=== PATIENT | female | born 1945 | race Caucasian/White ===

== ENCOUNTER 2018-11-14 09:00 | Outpatient (AMBR) | payer MEDICARE, SELFPAY ==
--- NOTE | 2018-10-27 12:10 | PTNOTE_ITS ---
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 Pt stated that her arm is still swollen, numb, and tingling. Pt has 3/10 pain when she tries to move her arm. Pt still has difficulty with ironing, overhead motions, lifting, chores, self care, work duties, and performing ADLs. Pt mention that she does live alone and will like to gain as much indep as possible. Objective Right Shoulder AROM: no active movement in all plane Right Shoulder PROM Flexion: 90 deg Abduction: 70 deg ER and IR: NT due to pain Right Shoulder MMTs: grossly trace Palpation: TTP right scalenes, upper trape, and levator scapulae musculatures DASH score: 45% Assessment Pt demonstrate right shoulder mobility and strength deficits s/p reverse shoulder replacement leading to decline function. Pt will benefit from physical therapy to increase strength, mobility, and work on functional tasks. Short Term and General Manager In Training Goals 1) Increase shoulder flexion AROM and DASH score to 70% in 12 wks to be able to perform shoulder height activities 2) Increase shoulder MMTs to 3+/5 in 12 wks to be able to perform chores 3) Decrease shoulder pain to 2/10 in 12 wks to be able to perform self care activities 4) Increase right c/s musculature flexibility WFL in 12 wks to be able to drive with minimal limitation 5) Indep with HEP Treatment Plan 1) Manual Therapy 2) Therapeutic Activities 3) Therapeutic Exercises 4) Modalities (ice, heat) Frequency and Duration 2 x wk for 12 wks Certification Dates: 10/27/18 to 01/25/19 Office Procedures PT Outpatient G-Codes Date of Service PT Date of Service: 10/27/18 G-Codes Carry/Moving/Handling Objects Carry Current Status G-Code: G8984: CM 80-100% Carry Goal Status G-Code:G8985: CJ 20-40% PT Procedures PT Date of Service: 10/27/18 OP PT Eval Mod Complex 30 minutes: Yes
--- NOTE | 2018-11-01 11:51 | PT.ODAYNRPT ---
PT Outpatient Daily Note Date of Service: November 01, 2018 OP Daily Note Visit Reasons: right shouder pain Outpatient Physical Therapy Treatment Date: 11/01/18 Subjective: Pt stated that her shoulder still feels numb. Pt has difficulty putting on her jacket. Pt feels okay today. Objective: Please see flow chart for list of ther ex performed Assessment: minimal guarding with PROM and tolerate isometric exercises. Pt was slightly dizziness after being in supine position for most of PT treatment. Pt require a few mins of sitting at the EOB to get herself together. Plan: Continue with PT Length of Time (minutes) of Treatment: 45 Minutes Office Procedures PT Outpatient G-Codes Date of Service PT Date of Service: 10/27/18 G-Codes Carry/Moving/Handling Objects Carry Current Status G-Code: G8984: CM 80-100% Carry Goal Status G-Code:G8985: CJ 20-40% PT Procedures PT Date of Service: 10/27/18 OP PT Eval Mod Complex 30 minutes: Yes PT Procedures PT Date of Service: 11/01/18 Therapeutic Exercise 30 minutes: Yes Manual Structural Drafter 15 minutes: Yes
--- NOTE | 2018-11-04 13:42 | PTNOTE_ITS ---
PT Outpatient Daily Note Date of Service: November 04, 2018 OP Daily Note Visit Reasons: right shouder pain Outpatient Physical Therapy Treatment Date: 11/04/18 Subjective: pt reported feeling lightheaded and not sure from what. pt states it could be the weather. pt refused to lay supine due to possible of vomiting. Objective: see flow sheet. Assessment: elevated the HOB to 50 degrees and used 3 pillows to support her neck. pillow under shoulder. during PROM pt needs cuing to relax for all planes. pt is more limited in mobility for ER/IR due to tightness. pt was having pain but tolerated PROM. pt was able to stay in place during PROM but squinting a little. pt understands the importance of PROM. added pulleys in which she completed the time but very slow motion at her own pace to be able to keep the discomfort tolerable. Plan: continue POC per PT. Length of Time (minutes) of Treatment: 45 Minutes Office Procedures PT Outpatient G-Codes Date of Service PT Date of Service: 10/27/18 G-Codes Carry/Moving/Handling Objects Carry Current Status G-Code: G8984: CM 80-100% Carry Goal Status G-Code:G8985: CJ 20-40% PT Procedures PT Date of Service: 11/04/18 Therapeutic Exercise 15 minutes: Yes Manual Investor Relations Coordinator 30 minutes: Yes PT Procedures PT Date of Service: 10/27/18 OP PT Eval Mod Complex 30 minutes: Yes PT Procedures PT Date of Service: 11/01/18 Therapeutic Exercise 30 minutes: Yes Manual Investor Relations Coordinator 15 minutes: Yes
--- NOTE | 2018-11-14 10:40 | PT.ODAYNRPT ---
PT Outpatient Daily Note Date of Service: November 14, 2018 OP Daily Note Visit Reasons: right shouder pain Outpatient Physical Therapy Treatment Date: 11/14/18 Subjective: Pt still notice tingling near the incision site. Pt's pain is bearable but still has difficulty moving her arm Objective: Please see flow chart for list of ther ex performed Assessment: improve PROM with less pain; still trace with rotaor cuff musculatures Plan: Continue with PT Length of Time (minutes) of Treatment: 45 Minutes Office Procedures PT Outpatient G-Codes Date of Service PT Date of Service: 10/27/18 G-Codes Carry/Moving/Handling Objects Carry Current Status G-Code: G8984: CM 80-100% Carry Goal Status G-Code:G8985: CJ 20-40% PT Procedures PT Date of Service: 11/04/18 Therapeutic Exercise 15 minutes: Yes Manual Strategic Consultant 30 minutes: Yes PT Procedures PT Date of Service: 11/14/18 Therapeutic Exercise 30 minutes: Yes Manual Strategic Consultant 15 minutes: Yes PT Procedures PT Date of Service: 10/27/18 OP PT Eval Mod Complex 30 minutes: Yes PT Procedures PT Date of Service: 11/01/18 Therapeutic Exercise 30 minutes: Yes Manual Strategic Consultant 15 minutes: Yes
== END 2018-11-14 23:59 | disposition home or self-care (01) ==
PROVIDERS: PCP Registered Nurse Community Health; Referring Provider Registered Nurse Community Health; Visit Provider Orthopaedic Surgery
DX: M25.511 Pain in right shoulder (principal); R53.1 Weakness; M79.89 Other specified soft tissue disorders; R20.0 Anesthesia of skin; R20.2 Paresthesia of skin; I10 Essential (primary) hypertension
CPT/HCPCS: 97110; 97140; 97162; G8984; G8985

== ENCOUNTER 2018-12-26 11:00 | Outpatient (AMBR) | payer MEDICARE, SELFPAY ==
--- NOTE | 2018-12-21 15:43 | PT.ODAYNRPT ---
PT Outpatient Daily Note Date of Service: December 21, 2018 OP Daily Note Visit Reasons: right shoulder pain Outpatient Physical Therapy Treatment Date: 12/21/18 Subjective: Pt's shoulder feels much better. Pt is now able to dress self with less restriction. Pt still has difficulty putting on her L ear ring. Objective: Please see flow chart for list of ther ex performed Assessment: continue to improve with sohulder AROM flexion, abduction, scaption. Pt has weakness in serratus and scapular musculature leading to difficulty with reaching exercise Plan: Continue with PT Length of Time (minutes) of Treatment: 60 Minutes Office Procedures PT Procedures PT Date of Service: 12/21/18 Therapeutic Exercise 60 minutes: Yes
--- NOTE | 2018-12-26 12:06 | PT.ODAYNRPT ---
PT Outpatient Daily Note Date of Service: December 26, 2018 OP Daily Note Visit Reasons: right shoulder pain Outpatient Physical Therapy Treatment Date: 12/26/18 Subjective: Pt has minimal shoulder pain. Pt stated that her arm and shoulder is still numb. Pt can now reach further into the desk and perform tasks. Objective: Please see flow chart for list of ther ex performed Assessment: tolerate exercises performed, continue to improve with shoulder AAROM in flexion and abduction. Plan: Conitnue with PT Length of Time (minutes) of Treatment: 30 Minutes Office Procedures PT Procedures PT Date of Service: 12/21/18 Therapeutic Exercise 60 minutes: Yes PT Procedures PT Date of Service: 12/26/18 Therapeutic Exercise 45 minutes: Yes
== END 2019-01-12 23:59 | disposition home or self-care (01) ==
PROVIDERS: Visit Provider Orthopaedic Surgery
DX: M25.511 Pain in right shoulder (principal); S43.431D Superior glenoid labrum lesion of right shoulder, subsequent encounter; S46.011D Strain of muscle(s) and tendon(s) of the rotator cuff of right shoulder, subsequent encounter; W17.89XD Other fall from one level to another, subsequent encounter
CPT/HCPCS: 97110

== ENCOUNTER → 2024-10-11 | Outpatient (CLI) | payer OTHER, SELFPAY ==
--- NOTE | 2024-10-11 10:37 | XR_ITS ---
Examination: Bilateral hips, AP pelvis, 5 views Technique: AP, lateral views both hips, AP pelvis, 5 views Exam date and time: October 11, 2024 1131 hours Comparison January 30, 2022 INDICATIONS: Bilateral hip pain one year worse on the right side FINDINGS: Dystrophic ossification lateral and above the right hip Prominent osteopenia Moderate bilateral hip osteoarthritis Bones of the pelvis intact Healed fracture right femoral shaft No acute fracture or hip dislocation IMPRESSION: Moderate bilateral hip osteoarthritis
== END | disposition home or self-care (01) ==
PROVIDERS: PCP Nurse Practitioner Family; Referring Provider Internal Medicine Rheumatology; Visit Provider Internal Medicine Rheumatology
DX: M16.0 Bilateral primary osteoarthritis of hip (principal)
CPT/HCPCS: 73522

== ENCOUNTER 2024-11-21 09:19 | Outpatient (AMB) | payer OTHER, SELFPAY ==
[2024-11-21 09:44] VITALS: BP 141/66; PULSE 85; RESP 18; TEMP 36.2; O2SAT 97; BMI 32.1
--- NOTE | 2024-11-21 09:44 | PD.ORTHCLVIS ---
Vital signs 11/21/24 09:44 Height 1.52 m Height Method Stated Weight 74.559 kg Weight Measurement Method Standing Scale BMI 32.1 BP 141/66 H Blood Pressure Source Automatic Cuff Blood Pressure Location Right Upper Arm Position Sitting Respiration 18 Pulse 85 Pulse Source Monitor Temp 97.2 F Temp Source Temporal Artery Scan Pulse Oximetry (%) 97 Oxygen Delivery Method Room Air Med/Allergies Allergies & Medications Allergies promethazine [From Phenergan] Allergy (Severe, Verified 02/28/24 10:30) Gastrointestinal Upset Sulfa (Sulfonamide Antibiotics) Allergy (Severe, Verified 11/21/24 09:45) Swelling of Lip/Tongue/Throat Medication Reconciliation ascorbic acid (vitamin C) 500 mg tablet (Vitamin C) 500 mg PO QDAY 05/14/20 [History Confirmed 11/21/24] calcium 315 mg (as citrate)-vitamin D3 6.25 mcg (250 unit) tablet (Citracal + Vitamin D Maximum) 1 tab PO QDAY 05/14/20 [History Confirmed 11/21/24] cholecalciferol (vitamin D3) 50 mcg (2,000 unit) capsule (Vitamin D3) 50 mcg PO QDAY 05/14/20 [History Confirmed 11/21/24] cyanocobalamin (B12)-cobamamide 5,000 mcg-100 mcg sublingual tablet (B-12 Plus) 1 tab QDAY 05/14/20 [History Confirmed 11/21/24] glucosamine sulf dipot chlr,msm,chond 550 mg-C 30 mg-maik 1 mg capsule (Glucosamine Chondroitin) 1 cap PO QDAY 05/14/20 [History Confirmed 11/21/24] lactobacillus combination no.4 3 billion cell capsule (Probiotic) 3,000 mmu cells PO QDAY 05/14/20 [History Confirmed 11/21/24] levothyroxine 88 mcg tablet 88 mcg PO QDAY 05/14/20 [History Confirmed 11/21/24] multivitamin 1 tab PO QDAY 05/14/20 [History Confirmed 11/21/24] omega 8-hdr-igb-fish oil 1,200 mg (144 mg-216 mg) capsule (Fish Oil) 1 cap PO QDAY 05/14/20 [History Confirmed 11/21/24] prasterone (dhea) 25 mg capsule (DHEA) 25 mg PO QDAY 05/14/20 [History Confirmed 11/21/24] prednisone 1 mg tablet 3 mg PO QDAY 05/14/20 [History Confirmed 11/21/24] turmeric 400 mg capsule 400 mg PO QDAY 05/14/20 [History Confirmed 11/21/24] vitamin B complex-folic acid 0.4 mg tablet (B Complex 1 (with folic acid)) 1 tab PO QDAY 05/14/20 [History Confirmed 11/21/24] cyclobenzaprine 10 mg tablet 10 mg PO TID PRN muscle spasm #30 tabs 02/21/21 [Rx Confirmed 11/21/24] meclizine 50 mg tablet 50 mg PO QDAY #14 tabs 02/22/24 [Rx Confirmed 11/21/24] metoclopramide HCl 5 mg tablet (Reglan) 5 mg PO QDAY #90 tabs 02/28/24 [Rx Confirmed 11/21/24] pantoprazole 40 mg tablet,delayed release (Protonix) 40 mg PO QDAY #90 tabs 02/28/24 [Rx Confirmed 11/21/24] Exam Exam Patient is in no acute distress and is cooperative with the examination today. Breathing is nonlabored. In no respiratory distress. Patient has no paraspinal tenderness. Spinal deformity cannot be appreciated. The gait of the patient is nonantalgic Bilateral extremities were evaluated and demonstrates sensation intact to light touch. Palpable pedal pulses are present. No significant edema is present. Bilateral knees were examined and the patient has full strength and range of motion.. The left hip was examined. Patient was able to flex to 90 degrees, adduct to 30 degrees, abduct to 40 degrees, internally rotate to 20 degrees, and externally rotate to 20 degrees. Patient has a negative logroll. Stinchfield is negative. The patient is nontender diffusely to touch. The right hip was examined. Patient was able to flex to 90 degrees, adduct to 30 degrees, abduct to 40 degrees, internally rotate to 20 degrees, and externally rotate to 20 degrees. Patient has a negative logroll. The stinchfield is negative. Assessment and Plan Problem List (1) Myositis ossificans: Status: Acute Plan: Patient is a pleasant 79-year-old female who presents today for evaluation of her Right hip. She had a childhood trauma when she was young. I will get serial x-rays and there is some Ossification and gluteus medius. I discussed with her that there are 2 options and it usually is self-limiting or something we would watch. I would not recommend Removal of the ossification at this time. Plan We will see the patient back On an as-needed basis Advanced Care Planning Discussion Advance care planning discussed with:: patient Office Procedures GNS Level of Care Nursing/Assessment Patient Status: Established Patient Nursing Assessment/Reassesment: Medication Reconciliation, Update PMH in EMR and Vital Signs Coordination of Care: Complex Care and Chronic Disease 1-5, Education Complex Pt/Fam, Consent,records obtained, informed consent, Results/Orders obtained and Staff clarify orders Established Patient Charge Established Patient Point Assignment: 95 Established Patient Point Charge: EP Level 3 (80-115) MA Intake Visit Data Collection New Patient or Established: Established Patient (seen at [facility] within 3 years) Reason for Visit:: RIGHT HIP PAIN Seen by Clinical Staff ONLY (RN/MA): No Verbal consent obtained for Telemed visit?: No Publicity Director Required: No PCP or OBGYN visit in last 3 months: Yes Hx Now: No Do You Feel Safe at Home: Yes Authorities Contacted: N/A Questionairres Past Medical History Past Medical History Have you ever been diagnosed with any of the following: Neurological Problems Seizures: No Cardiology Problems Congestive Heart Failure: No Pericarditis: Yes (1967) Hypotension: Yes Respiratory Problems Chronic Obstructive Pulmonary Disease (COPD): No Stomache/Intestinal Problems Hiatal Hernia: Yes Gastroesophageal Reflux Disease: Yes Genital/Urinary Problems Renal Disease: No Kidney Stones: Yes Musculoskeletal Problems Arthritis: Yes Rheumatoid Arthritis: Yes Endocrine Problems Diabetes Mellitus Type 1: No Diabetes Mellitus Type 2: No Hypothyroidism: Yes Systemic Lupus Erythematosus: Yes Other Problems Blood Transfusions: Yes Blood Transfusion Reaction: No Anesthesia Reactions: No Chicken Pox: Yes Measles: Yes Mumps: Yes Cancer: No Subjective Visit Visit for: new patient and hip Immunization / Flu Flu Vaccine in the Last 12 Months: No Flu Vaccine Exclusion Criteria: No Exclusion Criteria History of Present Illness Chief complaint: RIGHT HIP PAIN Lynn is a pleasant 79-year-old female who is 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 She had a prior childhood trauma over 50 years ago. She does not report any significant increase in pain recently. She saw a prior orthopedic surgeon who referred her here Personal History Occupation: RETIRED Red flag PMH: none BMI Counceling provided: Yes Pain Pain level (0-10): 8 Pain duration: COMES AND GOES Pain location: groin Pain quality: sharp Pain timing: increases with activity Associated signs & symptoms: stiffness Ambulatory data Ambulatory device: none Treatments Improvement with previous injections: No Improvement with PT: No Improvement with NSAIDS: n/a Review of Systems Review of Systems: All systems negative unless otherwise noted in HPI.
== END 2024-11-21 10:22 | disposition home or self-care (01) ==
PROVIDERS: Supervising Provider Orthopaedic Surgery Adult Reconstructive Orthopaedic Surgery; Visit Provider Orthopaedic Surgery Adult Reconstructive Orthopaedic Surgery
DX: M61.9 Calcification and ossification of muscle, unspecified (principal); E03.9 Hypothyroidism, unspecified; K21.9 Gastro-esophageal reflux disease without esophagitis
CPT/HCPCS: 99213; G0463

== ENCOUNTER → 2024-12-01 | Outpatient (CLI) | payer OTHER, SELFPAY ==
--- NOTE | 2024-12-01 15:20 | XR_ITS ---
Examination: Abdomen sonogram, Limited Date and time of exam: December 01, 2024 1608 hrs. Indications: Mid abdominal pain beginning one month ago Technique: Real-time guillory scale transabdominal sonographic images of the upper abdomen obtained. Findings: 5 mm gallstone Gallbladder wall is thickened 0.8 cm and suspicious for edema Common bile duct 0.3 cm Pancreas obscured by bowel gas Liver 14.8 cm fatty infiltration smooth contour no focal liver lesions Normal hepatopedal portal venous flow Patent IVC Impression: Cholelithiasis Suspicious for cholecystitis, consider HIDA scan or MRCP follow-up
--- NOTE | 2024-12-01 15:26 | XR_ITS ---
Examination: Abdomen AP single view Technique: AP portable supine abdomen, single view Exam date and time: December 01, 2024 at 1534 hrs. Indications: Abdominal pain in the left mid quadrant beginning one month ago Findings: Large amounts of stool throughout the colon No obstruction No free air Significant osteopenia Lumbar levoscoliosis 10 degrees Impression: Large amounts of stool throughout the colon
== END | disposition home or self-care (01) ==
LOC: CDIM 15:08
PROVIDERS: PCP Nurse Practitioner Family; Referring Provider Specialist; Visit Provider Specialist
DX: K80.20 Calculus of gallbladder without cholecystitis without obstruction (principal); K59.00 Constipation, unspecified
CPT/HCPCS: 74018; 76705

== ENCOUNTER → 2024-12-06 | Outpatient (CLI) | payer OTHER, SELFPAY ==
[2024-12-06 12:11] LABS: Basophils % (Auto) 0 % (0-2.5); Eosinophils % (Auto) 1 % (0-10); Hematocrit 44.3 % (36.0-46.0); Hemoglobin 14.8 g/dL (12.0-16.0); Immature Granulocytes % (Auto) 0 % (0-0); Immature Granulocytes Auto 0.03 Thou/mm3 (0.00-0.00); Lymphocytes # (Auto) 0.6 Thou/mm3 (1.0-4.8); Lymphocytes % (Auto) 7 % (10-50); Mean Corpuscular HGB Conc 33.4 g/dl (31.0-37.0); Mean Corpuscular Hemoglobin 30.1 pg (25.0-35.0); Mean Corpuscular Volume 90 fL (80-100); Monocytes # (Auto) 0.4 Thou/mm3 (0.0-0.8); Monocytes % (Auto) 5 % (0-12); Neutrophils # (Auto) 6.4 Thou/mm3 (1.8-7.7); Neutrophils % (Auto) 86 % (37-80); Nucleated Red Blood Cell % 0 /100 WBC (0); Platelet Count 234 Thou/mm3 (140-440); RDW Standard Deviation 46.2 fL (36.4-46.3); Red Blood Count 4.92 Miln/mm3 (4.00-5.20); White Blood Count 7.5 Thou/mm3 (3.6-11.0)
[2024-12-06 12:25] LABS: Urea Breath Test Negative (Negative)
[2024-12-06 12:34] LABS: Bacteria,Urine Rare; Bilirubin,Urine Negative (Negative); Blood,Urine Negative (Negative); Clarity,Urine Clear (Clear/Hazy); Collection Type, Urine Clean Catch; Color,Urine Yellow (Lt Yel-Yel); Glucose, Urine Negative (Negative); Ketones,Urine Negative (Negative); Leukocyte Esterase,Urine Negative (Negative); Nitrite,Urine Negative (Negative); Protein,Urine Negative (Neg - Trace); RBC,Urine 2 /hpf (0-3); Specific Gravity,Urine 1.019 (1.001-1.035); Squamous Epithelial Cell,Urine 4 /hpf (0-5); Urobilinogen,Urine Negative mg/dL (0.0-1.0); WBC,Urine 1 /hpf (0-5)
[2024-12-06 12:38] LABS: Alanine Aminotransferase 8 U/L (10-49); Albumin, Serum 4.9 gm/dL (3.4-4.8); Albumin/Globulin Ratio 2.1 (1.2-2.2); Alkaline Phosphatase 84 U/L (46-116); Amylase 45 U/L (30-118); Anion Gap 8 (7-16); Aspartate Amino Transferase 25 U/L (0-34); BUN/Creatinine Ratio 29 Ratio (12-20); Bilirubin,Total 0.4 mg/dL (0.3-1.2); Blood Urea Nitrogen 23 mg/dL (9-23); Carbon Dioxide 28.8 mMol/L (20.0-31.0); Chloride 105 mMol/L (98-107); Creatinine (Component) 0.8 mg/dL (0.6-1.3); Globulin 2.3 gm/dL (2.3-3.5); Glucose 101 mg/dL (74-106); Lipase 38 U/L (12-53); Osmolality,Calculated 286 (275-295); Potassium 4.1 mMol/L (3.4-5.1); Sodium 142 mMol/L (136-145); Total Protein 7.2 gm/dL (5.7-8.2); eGFR > 60 See Note
== END | disposition home or self-care (01) ==
LOC: COPL 11:11
PROVIDERS: PCP Nurse Practitioner Family; Referring Provider Specialist; Visit Provider Specialist
DX: R10.9 Unspecified abdominal pain (principal)
CPT/HCPCS: 36415; 80053; 81001; 82150; 83013; 83014; 83690; 85025

== ENCOUNTER → 2025-01-25 | Outpatient (CLI) | payer OTHER, SELFPAY ==
--- NOTE | 2025-01-25 09:45 | XR_ITS ---
Examination: Screening digital mammography, bilateral Computer aided detection 3-D breast Tomosynthesis, bilateral Date and time of exam: 01/25/2025, 9:39 AM Comparisons: 12/14/2023 Indications: Screening Technique: Nonmagnified MLO, CC views of the breasts to been obtained, reconstructed from 3-D Tomosynthesis images. R2 computer aided detection program utilized for evaluation of suspicious masses and/or abnormal calcifications. 3-D Tomosynthesis images obtained. Technologist: Findings: There are scattered areas of fibroglandular density. No evidence of abnormal masses or suspicious calcifications. Impression: BI-RADS category 1: Negative findings (within normal) Recommend 1 year follow-up mammogram
== END | disposition home or self-care (01) ==
LOC: CDIM 09:22
PROVIDERS: Referring Provider Physician Assistant; Visit Provider Physician Assistant
DX: Z12.31 Encounter for screening mammogram for malignant neoplasm of breast (principal); R92.313 Mammographic fatty tissue density, bilateral breasts
CPT/HCPCS: 77063; 77067

== ENCOUNTER 2025-02-17 17:16 | Emergency (ER) | payer OTHER, SELFPAY ==
[2025-02-17 17:17] VITALS: BMI 31.2
[2025-02-17 18:41] VITALS: BP 131/63; PULSE 76; RESP 18; TEMP 37; O2SAT 98
--- NOTE | 2025-02-17 18:41 | XR_ITS ---
Examination: Knee, left , 3 views Technique: Knee AP, lateral, oblique 3 views Date and time of exam: February 17, 2025 1947 hours INDICATIONS: Left knee pain beginning 4 days ago. FINDINGS: Moderate to advanced tricompartment osteoarthritis No fracture Moderate knee effusion IMPRESSION: Moderate to advanced tricompartment osteoarthritis
[2025-02-17] MEDS: NAPROXEN 250 MG TABLET 500 MG PO (18:57)
--- NOTE | 2025-02-18 02:33 | PD.EDLOWEX ---
Lower Extremity Injury RME/HPI General Chief Complaint: Extremity Injury, Lower Stated Complaint: Left ankle pain after she stepped wrong Time Seen by Provider: 02/17/25 18:41 Arrival date/time: 02/17/25 17:16 79F with history of RA presents to ED with L knee pain and swelling after it gave out on her. Patient just wants XR to make sure it's not broken. Limitations: no limitations Related Data Home Medications ?Medication ?Instructions ?Recorded ?Confirmed ascorbic acid (vitamin C) 500 mg 500 mg PO QDAY 05/14/20 11/21/24 tablet (Vitamin C) calcium 315 mg (as 1 tab PO QDAY 05/14/20 11/21/24 citrate)-vitamin D3 6.25 mcg (250 unit) tablet (Citracal + Vitamin D Maximum) cholecalciferol (vitamin D3) 50 50 mcg PO QDAY 05/14/20 11/21/24 mcg (2,000 unit) capsule (Vitamin D3) cyanocobalamin (B12)-cobamamide 1 tab QDAY 05/14/20 11/21/24 5,000 mcg-100 mcg sublingual tablet (B-12 Plus) glucosamine sulf dipot 1 cap PO QDAY 05/14/20 11/21/24 chlr,msm,chond 550 mg-C 30 mg-maik 1 mg capsule (Glucosamine Chondroitin) lactobacillus combination no.4 3 3,000 mmu cells PO QDAY 05/14/20 11/21/24 billion cell capsule (Probiotic) levothyroxine 88 mcg tablet 88 mcg PO QDAY 05/14/20 11/21/24 multivitamin 1 tab PO QDAY 05/14/20 11/21/24 omega 0-vfo-afj-fish oil 1,200 mg 1 cap PO QDAY 05/14/20 11/21/24 (144 mg-216 mg) capsule (Fish Oil) prasterone (dhea) 25 mg capsule 25 mg PO QDAY 05/14/20 11/21/24 (DHEA) prednisone 1 mg tablet 3 mg PO QDAY 05/14/20 11/21/24 turmeric 400 mg capsule 400 mg PO QDAY 05/14/20 11/21/24 vitamin B complex-folic acid 0.4 1 tab PO QDAY 05/14/20 11/21/24 mg tablet (B Complex 1 (with folic acid)) Previous Rx's ?Medication ?Instructions ?Recorded cyclobenzaprine 10 mg tablet 10 mg PO TID PRN muscle spasm #30 02/21/21 Held on 02/28/24. tabs Instructions: Resume on 02/29/24. meclizine 50 mg tablet 50 mg PO QDAY #14 tabs 02/22/24 metoclopramide HCl 5 mg tablet 5 mg PO QDAY #90 tabs 02/28/24 (Reglan) pantoprazole 40 mg tablet,delayed 40 mg PO QDAY #90 tabs 02/28/24 release (Protonix) Allergies Allergy/AdvReac Type Severity Reaction Status Date / Time promethazine (From Phenergan) Allergy Severe Gastrointestinal Verified 02/28/24 10:30 Upset Sulfa (Sulfonamide Allergy Severe Swelling Verified 11/21/24 09:45 Antibiotics) of Lip/Tongue/Throat Review of Systems Review of Systems Systems Reviewed: All systems reviewed, normal except as documented Constitutional Constitutional: Reports system reviewed and no additional complaints, except as documented, Denies fever(s) and Denies headache(s) ENT Ears, Nose, Mouth, and Throat: Denies disequilibrium and Denies headache(s) Cardiovascular Cardiovascular: Reports system reviewed and no additional complaints, except as documented, Denies chest pain and Denies dyspnea Respiratory Respiratory: Reports system reviewed and no additional complaints, except as documented, Denies cough and Denies dyspnea Gastrointestinal Gastrointestinal: Reports system reviewed and no additional complaints, except as documented, Denies abdominal pain, Denies nausea and Denies vomiting Musculoskeletal Musculoskeletal: Reports as per HPI, Reports arthralgias and Reports joint swelling Neurologic Neurologic: Reports system reviewed and no additional complaints, except as documented, Denies confusion, Denies disequilibrium and Denies headache(s) Psychiatric Psychiatric: Denies confusion Past Medical History Past Medical History NEUROLOGIC: Positive Neurological Disorders (VERTIGO); Negative Seizures CARDIAC: Positive Cardiac Disorders, Pericarditis (1970) and Hypotension; Negative Congestive Heart Failure RESPIRATORY: Negative Chronic Obstructive Pulmonary Disease (COPD) GASTROINTESTINAL: Positive Gastrointestinal Disorders, Hiatal Hernia and Gastroesophageal Reflux Disease GENITOURINARY: Positive Genitourinary Disorders and Kidney Stones; Negative Renal Disease MUSCULOSKELETAL: Positive Musculoskeletal Disorders, Arthritis and Rheumatoid Arthritis ENDOCRINE: Positive Endocrine Disorders, Hypothyroidism and Systemic Lupus Erythematosus; Negative Diabetes Mellitus Type 1 or Diabetes Mellitus Type 2 HEMATOLOGIC: Negative Blood Disorders OTHER HISTORY: Positive Autoimmune Disease (LUPUS), Blood Transfusions, Chicken Pox, Measles and Mumps; Negative Blood Transfusion Reaction, Anesthesia Reactions or Cancer Family History FAMILY HISTORY: Positive Family Cardiac Disorders and Family Cancer Surgical History SURGICAL: Positive Open Reduction Internal Fixation Social History SMOKING STATUS: Never smoker ED Exam General Limitations: Present no limitations General appearance: Present alert and in no apparent distress Head Head exam: Present atraumatic Eye Eye exam: Present normal appearance, PERRL and EOMI ENT ENT exam: Present normal exam, normal oropharynx and mucous membranes moist Neck Neck exam: Present normal inspection, full ROM and trachea midline Chest Chest inspection: Present normal inspection and symmetric chest wall rise Respiratory Respiratory exam: Present normal lung sounds bilaterally Cardiovascular Cardiovascular exam: Present regular rate, normal rhythm and normal heart sounds Abdominal Exam Abdominal exam: Present soft and normal bowel sounds Extremities Exam Extremities exam: Present full ROM Expanded Lower Extremity Exam Knee exam: Present full ROM (L) and swelling Back Exam Back exam: Present normal inspection and full ROM Neurological Exam Neurological exam: Present alert, oriented X3 and CN II-XII intact Psychiatric Psychiatric exam: Present normal affect and normal mood Skin Skin exam: Present warm, dry, intact and normal color Course Quality Measures none Orders Category Date Time Status XR knee LT 3V Stat Exams 02/17/25 18:41 Completed Naproxen [Naprosyn] Med 02/17/25 18:41 Discontinued 500 mg PO X1 ONE Vital Signs Vital signs: Vital Signs Temperature 98.6 F 02/17/25 18:41 Pulse Rate 76 02/17/25 18:41 Respiratory Rate 18 02/17/25 18:41 Blood Pressure 131/63 H 02/17/25 18:41 Pulse Oximetry (%) 98 02/17/25 18:41 Oxygen Delivery Method Room Air 02/17/25 18:41 O2 at 98% on RA and WNLs Extremity Injury, Lower MDM Narrative MDM Narrative:: 79F with history of RA presents to ED with L knee pain and swelling after it gave out on her. Patient just wants XR to make sure it's not broken. Physical exam reveals L knee swelling, but nor tenderness. ROM intact. Patient already has an KAYCE wrap. Patient is afebrile, calm, and alert. XR no fx. Patient data External records reviewed:: [facility] previous records Clinical information provided by:: patient Social determinants that could affect healthcare access:: none Patient has the following chronic illnesses:: RA How is presenting disease/condition affected by chronic disease/condition?: exacerbated by Evaluation data The following diagnostics were reviewed and interpreted by me:: radiology exam(s) Lab and/or radiology exams considered but not ordered:: ordered Interpretation Summary: above Medications / Prescriptions Medications or Prescriptions considered but not ordered:: ordered Medication administrations:: Medication Administration History Discontinued Medications Naproxen (Naproxen 250 Mg Tablet) 500 mg PO X1 ONE Stop: 02/17/25 18:42 Last Admin: 02/17/25 18:57 Dose: 500 mg Documented By: RD above Consultations Consultation(s) initiated? (list below): No Diagnosis Extremity Injury, Lower Differential Diagnosis: ankle sprain and strain, acute internal derangement of knee, fracture of femur, fracture of hip, puncture wound of foot, fracture of toe and ankle fracture Most likely diagnosis given after review of the tests above:: acute internal derangement of knee Admission Indicated Admission indicated?: not indicated Admission Request Was there a request for admission?: No Disposition Plan Disposition Plan: Discharge Discharge Attestation Discharge Attestation: The patient and all family members were given an opportunity to ask questions and understood the discharge instructions. Discharge instructions specifically effects, indications for sooner follow up or return to the emergency department, and the expected course of current diagnosis. Patient condition: Stable Discharge Plan Plan Patient Disposition: HOME (Self Care) Disposition Comment: Stable Prescriptions/Referrals Prescriptions/Med Rec: No Action multivitamin Tablet 1 tab PO QDAY prasterone (dhea) [DHEA] 25 mg Capsule 25 mg PO QDAY ascorbic acid (vitamin C) [Vitamin C] 500 mg Tablet 500 mg PO QDAY prednisone 1 mg Tablet 3 mg PO QDAY vitamin B complex-folic acid [B Complex 1 (with folic acid)] 0.4 mg Tablet 1 tab PO QDAY cyanocobalamin-cobamamide [B-12 Plus] 5,000-100 mcg Tablet, Sublingual 1 tab QDAY cholecalciferol (vitamin D3) [Vitamin D3] 50 mcg (2,000 unit) Capsule 50 mcg PO QDAY calcium citrate-vitamin D3 [Citracal + D Maximum] 315 mg- 250 unit Tablet 1 tab PO QDAY omega 0-rdd-htm-fish oil [Fish Oil] 1,200 (144-216) mg Capsule 1 cap PO QDAY Probiotic 3 billion cell Capsule 3,000 mmu cells PO QDAY turmeric 400 mg Capsule 400 mg PO QDAY Glucosamine Chondroitin 550-30-1 mg Capsule 1 cap PO QDAY levothyroxine 88 mcg Tablet 88 mcg PO QDAY cyclobenzaprine 10 mg tablet 10 mg PO TID PRN (Reason: muscle spasm) Qty: 30 0RF meclizine 50 mg tablet 50 mg PO QDAY Qty: 14 0RF pantoprazole [Protonix] 40 mg Tablet,Delayed Release (Dr/Ec) 40 mg PO QDAY Qty: 90 0RF metoclopramide HCl [Reglan] 5 mg Tablet 5 mg PO QDAY Qty: 90 0RF Referrals: Dta Villalobos PA-C [Primary Care Provider] - In 1 week Problem List Clinical Impression: Acute internal derangement of knee Patient/Caregiver Discharge Instructions Education Materials: How Your Knee Works Additional Instructions: Please follow-up with PCP within 24-48 hours and return immediately if symptoms worsen. If problem persists, recommend outpatient PT and/or MRI follow-up. In the meantime, rest, use ice/heat, and/or compression. Print Language: Syrian Stand Alone Forms: Patient Portal Info Letter PA/TRIAGE NURSE Supervising Physician PA/TRIAGE NURSE Supervising Physician: Dr. Higgins
== END 2025-02-17 21:06 | disposition home or self-care (01) ==
PROVIDERS: Emergency Provider Emergency Medicine; PCP Physician Assistant
DX: S83.105A Unspecified dislocation of left knee, initial encounter (principal); X50.9XXA Other and unspecified overexertion or strenuous movements or postures, initial encounter
CPT/HCPCS: 73562; 99283; A9270

== ENCOUNTER 2025-02-27 13:18 | Outpatient (AMB) | payer OTHER, SELFPAY ==
--- NOTE | 2025-02-27 13:52 | PD.ORTHCLVIS ---
Vital signs 02/27/25 13:53 Height 1.52 m Height Method Stated Weight 73.624 kg Weight Measurement Method Standing Scale BMI 31.8 BP 149/87 H Blood Pressure Source Automatic Cuff Blood Pressure Location Right Upper Arm Position Sitting Respiration 18 Pulse 86 Pulse Source Monitor Temp 97.7 F Temp Source Temporal Artery Scan Pulse Oximetry (%) 96 Oxygen Delivery Method Room Air Med/Allergies Allergies & Medications Allergies promethazine (From Phenergan) Allergy (Severe, Verified 02/27/25 13:55) Gastrointestinal Upset Sulfa (Sulfonamide Antibiotics) Allergy (Severe, Verified 02/27/25 13:55) Swelling of Lip/Tongue/Throat Medication Reconciliation ascorbic acid (vitamin C) 500 mg tablet (Vitamin C) 500 mg PO QDAY 05/14/20 [History Confirmed 02/27/25] calcium 315 mg (as citrate)-vitamin D3 6.25 mcg (250 unit) tablet (Citracal + Vitamin D Maximum) 1 tab PO QDAY 05/14/20 [History Confirmed 02/27/25] cholecalciferol (vitamin D3) 50 mcg (2,000 unit) capsule (Vitamin D3) 50 mcg PO QDAY 05/14/20 [History Confirmed 02/27/25] cyanocobalamin (B12)-cobamamide 5,000 mcg-100 mcg sublingual tablet (B-12 Plus) 1 tab QDAY 05/14/20 [History Confirmed 02/27/25] glucosamine sulf dipot chlr,msm,chond 550 mg-C 30 mg-maik 1 mg capsule (Glucosamine Chondroitin) 1 cap PO QDAY 05/14/20 [History Confirmed 02/27/25] lactobacillus combination no.4 3 billion cell capsule (Probiotic) 3,000 mmu cells PO QDAY 05/14/20 [History Confirmed 02/27/25] levothyroxine 88 mcg tablet 88 mcg PO QDAY 05/14/20 [History Confirmed 02/27/25] multivitamin 1 tab PO QDAY 05/14/20 [History Confirmed 02/27/25] omega 2-gyu-rrr-fish oil 1,200 mg (144 mg-216 mg) capsule (Fish Oil) 1 cap PO QDAY 05/14/20 [History Confirmed 02/27/25] prasterone (dhea) 25 mg capsule (DHEA) 25 mg PO QDAY 05/14/20 [History Confirmed 02/27/25] prednisone 1 mg tablet 3 mg PO QDAY 05/14/20 [History Confirmed 02/27/25] turmeric 400 mg capsule 400 mg PO QDAY 05/14/20 [History Confirmed 02/27/25] vitamin B complex-folic acid 0.4 mg tablet (B Complex 1 (with folic acid)) 1 tab PO QDAY 05/14/20 [History Confirmed 02/27/25] cyclobenzaprine 10 mg tablet 10 mg PO TID PRN muscle spasm #30 tabs 02/21/21 [Rx Confirmed 02/27/25] Held on 02/28/24. Instructions: Resume on 02/29/24. meclizine 50 mg tablet 50 mg PO QDAY #14 tabs 02/22/24 [Rx Confirmed 02/27/25] metoclopramide HCl 5 mg tablet (Reglan) 5 mg PO QDAY #90 tabs 02/28/24 [Rx Confirmed 02/27/25] pantoprazole 40 mg tablet,delayed release (Protonix) 40 mg PO QDAY #90 tabs 02/28/24 [Rx Confirmed 02/27/25] Exam Exam Patient is in no acute distress and is cooperative with the examination today. Breathing is nonlabored. In no respiratory distress. Patient has no paraspinal tenderness. Spinal deformity cannot be appreciated. The gait of the patient is nonantalgic Bilateral extremities were evaluated and demonstrates sensation intact to light touch. Palpable pedal pulses are present. No significant edema is present. Bilateral knees were examined and the patient has full strength and range of motion.. The left hip was examined. Patient was able to flex to 90 degrees, adduct to 30 degrees, abduct to 40 degrees, internally rotate to 20 degrees, and externally rotate to 20 degrees. Patient has a negative logroll. Stinchfield is negative. The patient is nontender diffusely to touch. The right hip was examined. Patient was able to flex to 90 degrees, adduct to 30 degrees, abduct to 40 degrees, internally rotate to 20 degrees, and externally rotate to 20 degrees. Patient has a negative logroll. The stinchfield is negative. left knee xrays demosntrate arthritis Assessment and Plan Problem List (1) Myositis ossificans: Status: Acute Plan: Patient is a pleasant 79-year-old female who presents today for evaluation of her Right hip. She also reports that she recently had a fall and increasing left knee pain since then. She went to the ER and there was no fracture. She does have a history of rheumatoid arthritis and she does have severe arthritis on x-ray. We discussed anti-inflammatories versus injections. She wants to hold off on any of it right now. We discussed that she should make an appointment with us should it worsen. I would also get weightbearing x-rays Plan We will see the patient back On an as-needed basis Advanced Care Planning Discussion Advance care planning discussed with:: patient Office Procedures GNS Level of Care Nursing/Assessment Patient Status: Established Patient Nursing Assessment/Reassesment: Medication Reconciliation, Update PMH in EMR and Vital Signs Coordination of Care: Complex Care and Chronic Disease 1-5, Education Complex Pt/Fam, Consent,records obtained, informed consent, Lab and Imaging orders, Results/Orders obtained and Staff clarify orders Established Patient Charge Established Patient Point Assignment: 110 Established Patient Point Charge: EP Level 3 (80-115) MA Intake Visit Data Collection New Patient or Established: Established Patient (seen at [facility] within 3 years) Reason for Visit:: KNEE PAIN Seen by Clinical Staff ONLY (RN/MA): No Verbal consent obtained for Telemed visit?: No PCP or OBGYN visit in last 3 months: Yes Hx Now: No Do You Feel Safe at Home: Yes Authorities Contacted: N/A Questionairres Past Medical History Past Medical History Have you ever been diagnosed with any of the following: Neurological Problems Seizures: No Cardiology Problems Congestive Heart Failure: No Pericarditis: Yes (1969) Hypotension: Yes Respiratory Problems Chronic Obstructive Pulmonary Disease (COPD): No Stomache/Intestinal Problems Hiatal Hernia: Yes Gastroesophageal Reflux Disease: Yes Genital/Urinary Problems Renal Disease: No Kidney Stones: Yes Musculoskeletal Problems Arthritis: Yes Rheumatoid Arthritis: Yes Endocrine Problems Diabetes Mellitus Type 1: No Diabetes Mellitus Type 2: No Hypothyroidism: Yes Systemic Lupus Erythematosus: Yes Other Problems Blood Transfusions: Yes Blood Transfusion Reaction: No Anesthesia Reactions: No Chicken Pox: Yes Measles: Yes Mumps: Yes Cancer: No Subjective Visit Visit for: follow up visit and knee Immunization / Flu Flu Vaccine in the Last 12 Months: No Flu Vaccine Exclusion Criteria: No Exclusion Criteria History of Present Illness Chief complaint: KNEE PAIN PAtient had a fall and went to the ER one month ago. The pain continues to improve. She has not had any injections. Personal History Occupation: retired Pain Pain level (0-10): 10 Pain duration: all day Pain location: inside (medial), outside (lateral), anterior and posterior Pain quality: sharp, dull and aching Pain timing: increases with activity Associated signs & symptoms: weakness Ambulatory data Ambulatory device: cane Treatments Improvement with previous injections: No Improvement with PT: No Review of Systems Review of Systems: All systems negative unless otherwise noted in HPI.
[2025-02-27 13:53] VITALS: BP 149/87; PULSE 86; RESP 18; TEMP 36.5; O2SAT 96; BMI 31.8
== END 2025-02-27 14:12 | disposition home or self-care (01) ==
PROVIDERS: PCP Physician Assistant; Referring Provider Physician Assistant; Supervising Provider Orthopaedic Surgery Adult Reconstructive Orthopaedic Surgery; Visit Provider Orthopaedic Surgery Adult Reconstructive Orthopaedic Surgery
DX: M61.9 Calcification and ossification of muscle, unspecified (principal); M25.562 Pain in left knee; M17.12 Unilateral primary osteoarthritis, left knee; K21.9 Gastro-esophageal reflux disease without esophagitis; E03.9 Hypothyroidism, unspecified
CPT/HCPCS: 99213; G0463

== ENCOUNTER 2025-08-26 09:08 | Emergency (ER) | payer OTHER, SELFPAY ==
[2025-08-26 09:11] VITALS: PULSE 72; RESP 16; O2SAT 98; BMI 31.2
[2025-08-26 09:17] VITALS: BP 165/55; PULSE 87; RESP 15; TEMP 36.8; O2SAT 98
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
--- NOTE | 2025-08-26 09:44 | XR_ITS ---
Examination: Left hip AP, lateral, AP pelvis 3 views Technique: Hip AP lateral, AP pelvis, 3 views Exam date and time: August 26, 2025, 0959 hours INDICATIONS: Injury to the left hip today, left hip pain FINDINGS: No left hip fracture or dislocation Right hip bones of the pelvis intact IMPRESSION: No acute hip or pelvic fracture.
--- NOTE | 2025-08-26 09:44 | XR_ITS ---
EXAMINATION: Left femur 2 views TECHNIQUE: AP lateral left femur 2 views Date and time: August 26, 2025, 1001 hours INDICATIONS: Injury to the leg today femur pain FINDINGS: No hip fracture or hip dislocation Shaft of the femur are intact Moderate left hip osteoarthritis Moderate tricompartment osteoarthritis left knee IMPRESSION: No acute fracture
[2025-08-26] MEDS: ACETAMINOPHEN 325 MG TABLET 650 MG PO (09:59)
[2025-08-26] MEDS: LIDOCAINE 5% 1 PATCH TOP (10:02)
[2025-08-26 10:13] LABS: Basophils # (Auto) 0.0 Thou/mm3 (0.0-0.2); Basophils % (Auto) 0 % (0-2.5); Eosinophils # (Auto) 0.0 Thou/mm3 (0.0-0.5); Eosinophils % (Auto) 0 % (0-10); Hematocrit 45.5 % (36.0-46.0); Hemoglobin 15.1 g/dL (12.0-16.0); Immature Granulocytes Auto 0.06 Thou/mm3 (0.00-0.00); Lymphocytes # (Auto) 0.6 Thou/mm3 (1.0-4.8); Lymphocytes % (Auto) 4 % (10-50); Mean Corpuscular HGB Conc 33.2 g/dl (31.0-37.0); Mean Corpuscular Hemoglobin 30.2 pg (25.0-35.0); Mean Corpuscular Volume 91 fL (80-100); Monocytes # (Auto) 1.1 Thou/mm3 (0.0-0.8); Monocytes % (Auto) 8 % (0-12); Neutrophils # (Auto) 11.7 Thou/mm3 (1.8-7.7); Neutrophils % (Auto) 87 % (37-80); Nucleated Red Blood Cell # 0.00 Thou/mm3 (0.00-0.00); Nucleated Red Blood Cell % 0 /100 WBC (0); Platelet Count 222 Thou/mm3 (140-440); RDW Standard Deviation 46.8 fL (36.4-46.3); Red Blood Count 5.00 Miln/mm3 (4.00-5.20); White Blood Count 13.5 Thou/mm3 (3.6-11.0)
[2025-08-26 10:23] VITALS: BP 160/81; PULSE 68; RESP 16; TEMP 36.8; O2SAT 96
[2025-08-26 10:25] LABS: Alanine Aminotransferase 11 U/L (10-49); Albumin, Serum 4.6 gm/dL (3.4-4.8); Albumin/Globulin Ratio 1.8 (1.2-2.2); Alkaline Phosphatase 80 U/L (46-116); Anion Gap 13 (7-16); Aspartate Amino Transferase 28 U/L (0-34); BUN/Creatinine Ratio 16 Ratio (12-20); Bilirubin,Total 0.7 mg/dL (0.3-1.2); Blood Urea Nitrogen 13 mg/dL (9-23); Calcium 9.4 mg/dL (8.3-10.6); Calcium (Corrected) 9.4 mg/dL (8.5-10.1); Carbon Dioxide 24.3 mMol/L (20.0-31.0); Chloride 108 mMol/L (98-107); Creatinine (Component) 0.8 mg/dL (0.6-1.3); Estimated Creatinine Clearance 52.4 mL/min (>60); Globulin 2.5 gm/dL (2.3-3.5); Glucose 108 mg/dL (74-106); Magnesium 2.2 mg/dL (1.6-2.6); Osmolality,Calculated 289 (275-295); Phosphorous 2.3 mg/dL (2.4-5.1); Potassium 3.6 mMol/L (3.4-5.1); Sodium 145 mMol/L (136-145); Total Protein 7.1 gm/dL (5.7-8.2); eGFR > 60 See Note
[2025-08-26 11:12] VITALS: BP 136/56; PULSE 72; RESP 20; TEMP 36.7; O2SAT 97
[2025-08-26] MEDS: NAPH,KPH MBDB 1 PACKET (1.5 GM) 2 PACKET PO (11:33)
--- NOTE | 2025-08-26 11:42 | PC.CC ---
Sandy LOFTON was consulted by HITESH Rowell regarding transportation for patient back home. [employer] arranged transportation for patient back home via [employer].
== END 2025-08-26 11:44 | disposition home or self-care (01) ==
PROVIDERS: PCP Student in an Organized Health Care Education/Training Program
DX: M16.12 Unilateral primary osteoarthritis, left hip (principal); M06.9 Rheumatoid arthritis, unspecified; M32.9 Systemic lupus erythematosus, unspecified
CPT/HCPCS: 36415; 73502; 73552; 80053; 83735; 84100; 85025; 99283; J3490; A9270

== ENCOUNTER → 2025-09-14 | Outpatient (CLI) | payer OTHER, SELFPAY ==
--- NOTE | 2025-09-14 14:35 | XR_ITS ---
Examination: Lumbar spine, 5 views Technique: Lumbar spine AP, lateral, coned lateral lower lumbar spine, bilateral obliques 5 views Exam date and time: September 14, 2025, 1438 hours, comparison February 09, 2024 INDICATIONS: Low back pain months. FINDINGS: Lumbar levoscoliosis 17 degrees Prominent osteopenia Diffuse advanced facet arthropathy No lumbar fracture Moderate to advanced diffuse lumbar degenerative disc disease IMPRESSION: Moderate to advanced lumbar degenerative disc disease
--- NOTE | 2025-09-14 14:35 | XR_ITS ---
Examination: Right hip AP, lateral, AP pelvis 3 views Technique: Hip AP lateral, AP pelvis, 3 views Exam date and time: September 14, 2025, 1438 hours INDICATIONS: Right hip pain this week FINDINGS: No right hip fracture or hip dislocation Dystrophic ossification above and lateral to the right hip Old fracture deformity proximal femoral shaft on the right No acute hip fracture Left hip bones of the pelvis intact Moderate narrowing bilateral hip joints IMPRESSION: No acute hip or pelvic fracture Moderate narrowing hip joints.
[2025-09-14 16:22] LABS: Basophils # (Auto) 0.0 Thou/mm3 (0.0-0.2); Basophils % (Auto) 0 % (0-2.5); Eosinophils # (Auto) 0.0 Thou/mm3 (0.0-0.5); Eosinophils % (Auto) 0 % (0-10); Hematocrit 44.3 % (36.0-46.0); Hemoglobin 14.6 g/dL (12.0-16.0); Immature Granulocytes Auto 0.02 Thou/mm3 (0.00-0.00); Lymphocytes # (Auto) 0.9 Thou/mm3 (1.0-4.8); Lymphocytes % (Auto) 12 % (10-50); Mean Corpuscular HGB Conc 33.0 g/dl (31.0-37.0); Mean Corpuscular Hemoglobin 30.2 pg (25.0-35.0); Mean Corpuscular Volume 92 fL (80-100); Monocytes # (Auto) 0.5 Thou/mm3 (0.0-0.8); Monocytes % (Auto) 7 % (0-12); Neutrophils # (Auto) 6.1 Thou/mm3 (1.8-7.7); Neutrophils % (Auto) 80 % (37-80); Nucleated Red Blood Cell # 0.00 Thou/mm3 (0.00-0.00); Nucleated Red Blood Cell % 0 /100 WBC (0); Platelet Count 209 Thou/mm3 (140-440); RDW Standard Deviation 47.0 fL (36.4-46.3); Red Blood Count 4.83 Miln/mm3 (4.00-5.20); White Blood Count 7.6 Thou/mm3 (3.6-11.0)
[2025-09-14 16:43] LABS: Alanine Aminotransferase 9 U/L (10-49); Albumin, Serum 4.8 gm/dL (3.4-4.8); Albumin/Globulin Ratio 2.3 (1.2-2.2); Alkaline Phosphatase 75 U/L (46-116); Anion Gap 10 (7-16); Aspartate Amino Transferase 21 U/L (0-34); BUN/Creatinine Ratio 16 Ratio (12-20); Bilirubin,Total 0.3 mg/dL (0.3-1.2); Blood Urea Nitrogen 14 mg/dL (9-23); Calcium 9.6 mg/dL (8.3-10.6); Calcium (Corrected) 9.6 mg/dL (8.5-10.1); Carbon Dioxide 25.3 mMol/L (20.0-31.0); Chloride 110 mMol/L (98-107); Creatinine (Component) 0.9 mg/dL (0.6-1.3); Globulin 2.1 gm/dL (2.3-3.5); Glucose 103 mg/dL (74-106); Osmolality,Calculated 289 (275-295); Potassium 4.0 mMol/L (3.4-5.1); Sodium 145 mMol/L (136-145); Total Protein 6.9 gm/dL (5.7-8.2); eGFR > 60 See Note
== END | disposition home or self-care (01) ==
LOC: CDIM 14:28 → COPL 14:57
PROVIDERS: PCP Student in an Organized Health Care Education/Training Program; Referring Provider Student in an Organized Health Care Education/Training Program; Visit Provider Radiology Diagnostic Radiology
DX: M25.851 Other specified joint disorders, right hip (principal); M51.369 Other intervertebral disc degeneration, lumbar region without mention of lumbar back pain or lower extremity pain; E87.8 Other disorders of electrolyte and fluid balance, not elsewhere classified
CPT/HCPCS: 36415; 72110; 73502; 80053; 85025

== ENCOUNTER → 2025-10-09 | Outpatient (CLI) | payer OTHER, SELFPAY ==
--- NOTE | 2025-10-09 14:00 | XR_ITS ---
Examination: Abdomen sonogram, complete Date and time of exam: October 09, 2025, 1407 hours INDICATIONS: Left lower abdominal pain beginning 1 month ago. Technique: Multiple real-time grayscale transabdominal sonographic images of the abdomen have been obtained. Findings: 5 mm gallstone Abnormal thickening of the gallbladder wall 0.6 cm Common bile duct 0.2 cm Pancreatic head 2.6 cm Aorta not enlarged Liver 14.8 cm fatty infiltration smooth contour Normal hepatopetal portal venous flow Patent IVC Right kidney 10.4 cm renal cortex 1.5 cm Left kidney 9.8 cm renal cortex 1.4 cm Spleen 8.0 cm IMPRESSION: Cholelithiasis Recommend HIDA scan or MRCP follow-up to exclude cholecystitis
--- NOTE | 2025-10-09 14:30 | XR_ITS ---
EXAMINATION: Ultrasound soft tissue left hip TECHNIQUE: Grayscale sonographic images soft tissue left hip Date and time: October 09, 2025, 1420 hours INDICATIONS: Left hip pain beginning 6 months ago. FINDINGS: No cystic or solid mass noted, no fluid in the left hip joint depicted IMPRESSION: Negative examination
== END | disposition home or self-care (01) ==
LOC: CDIM 13:37
PROVIDERS: PCP Student in an Organized Health Care Education/Training Program; Referring Provider Student in an Organized Health Care Education/Training Program; Visit Provider Student in an Organized Health Care Education/Training Program
DX: K80.20 Calculus of gallbladder without cholecystitis without obstruction (principal); M25.552 Pain in left hip
CPT/HCPCS: 76700; 76882